=== PATIENT | female | born 1995 | race Caucasian/White ===

== ENCOUNTER 2016-08-17 13:37 | Emergency (ER) | payer BC ==
[~2016-08-17] VITALS: Ht 160 cm; Wt 140.7 kg
[~2016-08-17 13:37] MED LIST: BCPILLS PO
[2016-08-17 13:42] VITALS: TEMP 36.4; Ht 160 cm; Wt 140.7 kg
[2016-08-17] MEDS ORDERED: LEVO25TA PO (13:57)
--- NOTE | 2016-08-17 14:18 | DIAGNOSTIC IMAGING REPORT ---
LEFT ANKLE MIN 3 VIEWS ROUTINE CLINICAL HISTORY: Left ankle pain COMPARISON: None. DISCUSSION: No acute fractures are visualized. The ankle mortise appears intact on these nonstress views. There is minimal irregularity the tibial plafond. There is no evidence for soft tissue swelling. IMPRESSION: 1. No acute fractures or subluxations. 2. Minimal irregularity of the tibial plafond, finding of uncertain clinical significance Electronically signed by: Abdi Maldonado M.D. 08/17/2016 2:16 PM Dictated Date/Time: 08/17/2016 2:14 PM
--- NOTE | 2016-08-17 14:30 | EMERGENCY ROOM VISIT NOTE ---
ED Visit Note First contact with patient: 13:47 CHIEF COMPLAINT: Left ankle injury last evening HISTORY OF PRESENT ILLNESS: Patient is a 21-year-old white female brought to the emergency department by her grandmother for evaluation of a left ankle injury. She admits to drinking alcohol last night, and states that she fell, she believes rolling the left ankle. She has applied ice today. She notes that the foot and ankle are more swollen. She is able to bear weight but it is painful. She has a remote history of a fracture through this ankle when she was in elementary school. She rates her pain a 7/10. She denies any other injuries related to the fall. REVIEW OF SYSTEMS: Review of systems as per HPI. All other systems reviewed were negative. At least 6 systems reviewed. PMH: Electronic medical records are reviewed and summarized as above/below. See Problem List.. SOCIAL HISTORY: Patient lives at home. Employed. PHYSICAL EXAM: Vital Signs: Reviewed Nurse's notes. MENTAL STATUS: Alert, oriented, and cooperative. The left ankle is swollen and tender over the lateral aspect but the skin is intact and there is no ligamentous instability. XXXX pain over the 5th metatarsal or fibular head. Lisfranc joint is negative. There is no deformity. The foot and toes are warm and well-perfused. Sensation to pain and light touch is intact. EMERGENCY DEPARTMENT COURSE: X-ray reveals no acute fracture. Minimal irregularity was noted over the tibial plafond, possibly related to her old fracture or osteochondral defect. A compression sleeve and gel splint were applied to the ankle under my direction and the position was satisfactory. Crutches were issued and patient was instructed on a non weight bearing gait. Differential diagnosis include foot verses ankle sprain/fracture, contusion, dislocation. LEFT ANKLE MIN 3 VIEWS ROUTINE CLINICAL HISTORY: Left ankle pain COMPARISON: None. DISCUSSION: No acute fractures are visualized. The ankle mortise appears intact on these nonstress views. There is minimal irregularity the tibial plafond. There is no evidence for soft tissue swelling. IMPRESSION: 1. No acute fractures or subluxations. 2. Minimal irregularity of the tibial plafond, finding of uncertain clinical significance Problem List Medical Problems: (1) Migraine Status: Chronic (2) Pseudotumor cerebri Status: Chronic (3) Tobacco abuse Status: Chronic (4) TOBACCO USE DISORDER Status: Chronic Surgical Problems: (1) History of tonsillectomy Status: Resolved Current/Historical Medications Scheduled Control Pills ( Control Pills), 1 TAB PO DAILY Levothyroxine Sodium (Synthroid), 25 MCG PO DAILY Allergies Coded Allergies: Sumatriptan (Unverified Allergy, Intermediate, CHEST TIGHTNESS, 06/02/15) Ondansetron (Verified Allergy, Unknown, ., 06/02/15) Vital Signs Date Time Temp Pulse Resp B/P Pulse Ox O2 Delivery O2 Flow Rate FiO2 08/17/16 14:35 100 18 145/101 98 08/17/16 13:42 36.4 100 18 145/101 98 Room Air Departure Information Impression Primary Impression: Left ankle sprain Referrals No Doctor, Assigned (PCP) Patient Instructions [facility] Additional Instructions Ibuprofen(Motrin, Advil) may be used for fever or pain. Use 600mg every six hours as needed. Take with food. Avoid using more than 2400mg in a 24 hour period. Do not use 2400mg per day for more than three consecutive days without physician direction. Prolonged inappropriate use can lead to stomach upset or ulcers. This medication can be taken if you need to drive, work, or perform activities which may be dangerous when taking narcotic pain medication. (AND/OR) Acetaminophen(Tylenol) may be used for fever or pain. Use 1000mg every six hours as needed. Avoid using more than 3000mg in a 24 hour period. This medication can be taken if you need to drive, work, or perform activities which may be dangerous when taking narcotic pain medication. Ice compresses for 20 minutes at a time four times daily for 2-3 days. Use the gel splint and crutches as instructed. Rest and elevate your injury. Continue current medications. Return to the ER immediately for any numbness, tingling, severe pain, extreme swelling in the extremity or as needed. Followup with your family doctor or orthopedic surgery if no improvement in 5-7 days.
[2016-08-17 14:35] VITALS: BP 145/101; PULSE 100; O2SAT 98
== END 2016-08-17 14:35 | disposition home or self-care (01) ==
LOC: C.EDB 13:39 → C.EDD 14:35
DX: S93.402A Sprain of unspecified ligament of left ankle, initial encounter (principal); W19.XXXA Unspecified fall, initial encounter; F17.200 Nicotine dependence, unspecified, uncomplicated; Z90.89 Acquired absence of other organs

== ENCOUNTER 2020-01-11 15:39 | Inpatient (IN) ==
[2020-01-11] MEDS: LACTATED RINGER'S 1,000 ML IV PRN (16:35)
[2020-01-11 16:46] LABS: Basophils # (auto) 0.02 K/uL (0-0.2); Basophils % (auto) 0.2 %; Eosinophils # (auto) 0.15 K/uL (0-0.5); Eosinophils % (auto) 1.1 %; Hematocrit (blood only) 33.4 % (37-47); Hemoglobin 10.9 g/dL (12.0-16.0); Immature Granulocytes # (auto) 0.09 K/uL (0.00-0.02); Immature Granulocytes % (auto) 0.7 %; Lymphocytes # (auto) 2.22 K/uL (1.2-3.4); Lymphocytes % (auto) 16.9 %; Mean Corpuscular Hemoglobin 26.8 pg (25-34); Mean Corpuscular Hgb Conc 32.6 g/dL (32-36); Mean Corpuscular Volume 82.1 fL (80-100); Mean Platelet Volume 10.6 fL (7.4-10.4); Monocytes # (auto) 1.02 K/uL (0.11-0.59); Monocytes % (auto) 7.8 %; Neutrophils # (auto) 9.63 K/uL (1.4-6.5); Neutrophils % (auto) 73.3 %; Platelet Count 250 K/uL (130-400); RDW Coefficient of Variation 14.4 % (11.5-14.5); RDW Standard Deviation 43.4 fL (36.4-46.3); Red Blood Count 4.07 M/uL (4.2-5.4); White Blood Count 13.13 K/uL (4.8-10.8)
[2020-01-11] MEDS ORDERED: OXYTOCIN 30 UNITS/500 ML BAG IV PRN (19:38)
[2020-01-11] MEDS ORDERED: LACTATED RINGER'S 1,000 ML IV PRN (19:38)
[2020-01-11] MEDS ORDERED: DINOPROSTONE 10 MG INSERT PV ONE (20:00)
--- NOTE | 2020-01-11 21:45 | Obstetrical Progress Note ---
Date of Service January 11, 2020 Assessment & Plan Admission and Anticipated Discharge Date Admission Date: January 11, 2020 Subjective Pt doing well Induction for poor testing. Pt is obese. FHR ; CAT 1 Ctx. Minimal VE; FT/soft/post Cervidil placed Results & Data ([facility]) Vital Signs (Past 12 Hours) Vital Signs Temp Pulse Resp BP Pulse Ox 01/11/20 20:01 109 H 99 01/11/20 19:56 105 H 99 01/11/20 19:51 106 H 98 01/11/20 19:46 106 H 98 01/11/20 19:41 110 H 99 01/11/20 19:36 111 H 98 01/11/20 19:31 107 H 99 01/11/20 19:26 102 H 98 01/11/20 19:21 115 H 99 01/11/20 19:16 108 H 98 01/11/20 19:11 107 H 99 01/11/20 19:06 108 H 99 01/11/20 19:03 36.9 C 110 H 20 128/75 01/11/20 19:01 109 H 99 01/11/20 18:56 110 H 98 01/11/20 18:51 110 H 98 01/11/20 18:46 105 H 98 01/11/20 18:41 110 H 98 01/11/20 18:36 110 H 98 01/11/20 18:31 117 H 98 01/11/20 18:26 108 H 98 01/11/20 18:21 110 H 99 01/11/20 18:16 110 H 98 01/11/20 18:11 113 H 98 01/11/20 18:06 118 H 97 01/11/20 17:59 121 H 98 01/11/20 17:54 116 H 98 01/11/20 17:49 109 H 98 01/11/20 17:44 106 H 98 01/11/20 15:45 36.8 C 116 H 20 139/64
[2020-01-12] MEDS: ACETAMINOPHEN 325 MG TAB PO PRN (08:29)
--- NOTE | 2020-01-12 10:42 | Obstetrical Progress Note ---
Date of Service January 12, 2020 Assessment & Plan Admission and Anticipated Discharge Date Admission Date: January 11, 2020 Physical Exam Genitourinary: Manual OB Exam: + cervical dilation fingertip, + cervical effacement 50% and + station high OB Exam Monitor Tracing: + external FHT monitor used, + external uterine monitor used and + category I Cervidil removed will let eat and start Cytotec orally for cervical ripening Results & Data ([facility]) Vital Signs (Past 12 Hours) Vital Signs Temp Pulse Resp BP 01/12/20 07:12 90 131/60 01/12/20 07:08 36.6 C 01/12/20 05:54 84 140/88 01/12/20 03:51 36.7 C 01/11/20 22:50 36.4 C L 97 H 18 125/60
[2020-01-12] MEDS: miSOPROStoL 50 MCG TAB PO SCH ×2 (14:12→18:15)
[2020-01-12] MEDS ORDERED: DINOPROSTONE 10 MG INSERT PV ONE ×3 (21:15→22:30)
--- NOTE | 2020-01-12 22:20 | Obstetrical Progress Note ---
Date of Service January 12, 2020 Assessment & Plan Admission and Anticipated Discharge Date Admission Date: January 11, 2020 Physical Exam Genitourinary: Manual OB Exam: + cervical dilation fingertip, + cervical effacement 50% and + station high OB Exam Monitor Tracing: + external FHT monitor used, + external uterine monitor used and + category I Cervix more anterior and soft Cervidil 10 mg placed vaginally Results & Data ([facility]) Vital Signs (Past 12 Hours) Vital Signs Temp Pulse Resp BP 01/12/20 19:10 36.5 C 18 01/12/20 19:05 90 137/83 01/12/20 15:18 36.4 C L 98 H 20 134/72 01/12/20 11:09 36.6 C 84 20 141/90 H
[2020-01-13] MEDS: miSOPROStoL 50 MCG TAB PO SCH (09:51)
[2020-01-13] MEDS ORDERED: OXYTOCIN 30 UNITS/500 ML BAG IV PRN (10:44)
--- NOTE | 2020-01-13 10:47 | Obstetrical Progress Note ---
Date of Service January 13, 2020 Assessment & Plan Admission and Anticipated Discharge Date Admission Date: January 11, 2020 Subjective doing well Cevidil puled out of vagina Physical Exam Genitourinary: OB Exam Abdomen: + estimated weight (7-8 lbs.) Manual OB Exam: + cervical dilation 3 cm, + cervical effacement 60% and + station high OB Exam Monitor Tracing: + external FHT monitor used, + external uterine monitor used and + category I Will start Oxytocin and antibiotics Results & Data ([facility]) Vital Signs (Past 12 Hours) Vital Signs Temp Pulse Resp BP 01/13/20 07:25 36.4 C L 91 H 20 110/60 01/13/20 04:49 86 130/62
[2020-01-13] MEDS: LACTATED RINGER'S 1,000 ML IV PRN ×2 (11:51→17:57)
[2020-01-13] MEDS ORDERED: Nursing to Pharmacy Communication SCH (13:30)
[2020-01-13] MEDS ORDERED: PENICILLIN G POTASSIUM 6 MU in DEXTROSE 5% 250 ML IV STA (14:59)
[2020-01-13] MEDS ORDERED: BUTORPHANOL TARTRATE 1 MG/ML VIAL IV PRN (14:59)
--- NOTE | 2020-01-13 16:52 | Obstetrical Progress Note ---
Date of Service January 13, 2020 Assessment & Plan Admission and Anticipated Discharge Date Admission Date: January 11, 2020 Physical Exam Genitourinary: Manual OB Exam: + cervical dilation 4 cm, + cervical effacement 80% and + station high OB Exam Monitor Tracing: + external FHT monitor used, + external uterine monitor used, + category I and + normal FHT variability Results & Data ([facility]) Vital Signs (Past 12 Hours) Vital Signs Temp Pulse Resp BP 01/13/20 16:29 86 141/91 H 01/13/20 14:50 36.5 C 102 H 16 130/79 01/13/20 14:03 104 H 18 136/91 01/13/20 13:12 99 H 18 144/88 H 01/13/20 11:54 96 H 18 121/59 L 01/13/20 10:49 36.4 C L 100 H 20 127/60 01/13/20 07:25 36.4 C L 91 H 20 110/60
[2020-01-13] MEDS ORDERED: fentaNYL citrate 100 MCG/2 ML VIAL ONE (17:06)
[2020-01-13] MEDS ORDERED: ePHEDrine sulfate 50 MG/ML AMP ONE (17:06)
[2020-01-13] MEDS ORDERED: BUPIVACAINE 0.25% 30 ML VIAL ONE (17:06)
[2020-01-13] MEDS ORDERED: fentaNYL 2MCG/ML ROPIV 1.25MG/ML 100 ML BAG EPI ONE (17:07)
[2020-01-13] MEDS ORDERED: DiphenhydrAMINE HCL 50 MG/ML VIAL IV PRN (17:15)
[2020-01-13] MEDS ORDERED: NALOXONE HCL 0.4 MG/1 ML VIAL/CARP IV PRN (17:15)
[2020-01-13] MEDS ORDERED: NALOXONE HCL 1 MG in SODIUM CHLORIDE 0.9% 1000ML 1,000 ML IV PRN (17:15)
[2020-01-13] MEDS ORDERED: ePHEDrine sulfate 50 MG/ML AMP IV PRN (17:15)
--- NOTE | 2020-01-13 17:16 | Anesthesiology Consultation ---
Date of Service January 13, 2020 Assessment & Plan (1) Encounter for pre-operative examination: Chart Review Chart Review: Patient NOT seen in Pre Admission Testing and Acceptable Risk for Labor Epidural Consults Requested none History Height/Weight Height: 5 ft 3 in Weight: 163.293 kg Allergies Allergy/AdvReac Type Severity Reaction Status Date / Time sumatriptan Allergy Intermediate CHEST Verified 01/11/20 15:48 TIGHTNESS ondansetron Allergy Unknown Unknown Verified 01/11/20 15:48 Medications Home Medications Medication Instructions Recorded Confirmed Last Taken levothyroxine [Synthroid] 25 mcg PO DAILY #0 tab 08/17/16 01/11/20 01/11/20 07:00 docusate sodium [Colace] 100 mg PO HS 12/16/19 01/11/20 01/10/20 23:00 ferrous sulfate [iron] 325 mg PO [id number] 12/16/19 01/11/20 01/09/20 23:00 [id number] 1 tab PO DAILY 12/16/19 01/11/20 01/10/20 23:00 [] Active Medications Generic Name Dose Route Start Last Admin Trade Name Freq PRN Reason Stop Dose Admin Acetaminophen 650 mg 01/12/20 07:51 01/12/20 08:29 Acetaminophen 325 Mg Tab PO 02/11/20 07:50 650 mg Q4H PRN Administration head ache Butorphanol Tartrate 1 mg 01/13/20 14:59 01/13/20 15:12 Butorphanol Tartrate 1 Mg/Ml Vial IV 02/12/20 14:58 1 mg Q2H PRN Administration Pain Lactated Ringer's 1,000 mls @ 125 mls/hr 01/11/20 16:23 01/13/20 17:15 Lr IV 02/10/20 16:22 999 mls/hr .Q8H PRN Infusion L&D Protocol Protocol Oxytocin 30 units in 500 mls @ 6 mls/hr 01/13/20 10:44 01/13/20 15:57 Pitocin IV 01/15/20 10:43 0.36 units/hr .Q24H PRN 6 mls/hr Labor Induction/Augmentation Titration Protocol 0.36 UNITS/HR Past Medical History Medical History ADHD Enlarged kidney right kidney- following up with nep hrologist on 01-03 Hypothyroidism Migraine Morbid obesity Pseudotumor cerebri Ureteral calculus, left Past Surgical History Surgical History History of tonsillectomy Past Anesthesia History No Hx of Anesthesia Complications and No Family Hx of Anesthesia Complications History of PONV No Hx of PONV and No Hx of Motion Sickness Social History Smoking Status: Never smoker Hx Alcohol Use: No Hx Substance Use: No substance use type: does not use Physical Exam Vital Signs Last Vital Signs Temp 36.5 C 01/13/20 14:50 Pulse 90 01/13/20 17:15 Resp 16 01/13/20 14:50 BP 141/91 H 01/13/20 16:29 Pulse Ox 99 01/13/20 17:15 Testing Laboratory Results 01/11/20 16:34
--- NOTE | 2020-01-13 19:57 | Obstetrical Progress Note ---
Date of Service January 13, 2020 Assessment & Plan Admission and Anticipated Discharge Date Admission Date: January 11, 2020 Physical Exam Genitourinary: OB Exam Abdomen: + vertex Manual OB Exam: + cervical dilation 4 cm, + cervical effacement 80% and + station -2 OB Exam Monitor Tracing: + external FHT monitor used, + external uterine monitor used and + category I epidural working well first antibiotic dose in Results & Data ([facility]) Vital Signs (Past 12 Hours) Vital Signs Temp Pulse Resp BP Pulse Ox 01/13/20 19:51 95 H 142/67 H 01/13/20 19:50 96 H 98 01/13/20 19:45 99 H 98 01/13/20 19:40 98 H 97 01/13/20 19:36 93 H 151/73 H 01/13/20 19:35 91 H 98 01/13/20 19:30 98 H 20 99 01/13/20 19:25 94 H 98 01/13/20 19:21 94 H 124/63 01/13/20 19:20 95 H 98 01/13/20 19:15 95 H 98 01/13/20 19:10 99 H 97 01/13/20 19:05 92 H 98 01/13/20 19:04 97 H 140/67 01/13/20 19:00 91 H 98 01/13/20 18:59 93 H 143/68 H 01/13/20 18:55 92 H 98 01/13/20 18:54 94 H 154/73 H 01/13/20 18:50 97 H 97 01/13/20 18:49 97 H 142/71 H 01/13/20 18:45 97 H 143/74 H 96 01/13/20 18:40 99 H 96 01/13/20 18:39 98 H 145/69 H 01/13/20 18:35 96 H 97 01/13/20 18:34 92 H 155/77 H 01/13/20 18:30 99 H 145/87 H 97 01/13/20 18:25 91 H 97 01/13/20 18:24 94 H 127/57 L 01/13/20 18:20 92 H 98 01/13/20 18:18 90 123/59 L 01/13/20 18:16 90 126/61 01/13/20 18:15 92 H 98 01/13/20 18:14 93 H 127/60 01/13/20 18:12 93 H 18 126/60 01/13/20 18:10 93 H 18 122/58 L 98 01/13/20 18:08 102 H 131/61 01/13/20 18:06 93 H 143/69 H 01/13/20 18:05 91 H 98 01/13/20 18:04 96 H 18 143/66 H 01/13/20 18:02 95 H 16 145/67 H 01/13/20 18:00 94 H 16 143/68 H 98 01/13/20 17:58 96 H 16 137/67 01/13/20 17:56 93 H 16 145/76 H 01/13/20 17:55 92 H 98 01/13/20 17:54 93 H 16 143/65 H 01/13/20 17:52 93 H 16 144/65 H 01/13/20 17:50 93 H 16 144/72 H 99 01/13/20 17:48 101 H 16 148/63 H 01/13/20 17:46 98 H 16 158/74 H 01/13/20 17:45 98 H 99 01/13/20 17:44 100 H 180/91 H 01/13/20 17:40 101 H 99 01/13/20 17:35 99 H 99 01/13/20 17:31 92 H 178/101 H 01/13/20 17:30 88 100 01/13/20 17:25 89 99 01/13/20 17:20 86 99 01/13/20 17:15 90 99 01/13/20 17:10 90 98 01/13/20 17:05 83 99 01/13/20 16:29 86 141/91 H 01/13/20 14:50 36.5 C 102 H 16 130/79 01/13/20 14:03 104 H 18 136/91 01/13/20 13:12 99 H 18 144/88 H 01/13/20 11:54 96 H 18 121/59 L 01/13/20 10:49 36.4 C L 100 H 20 127/60
[2020-01-13] MEDS: PENICILLIN G POTASSIUM 3 MU in DEXTROSE 5% 100 ML IV PRN (20:33)
[2020-01-14] MEDS: PENICILLIN G POTASSIUM 3 MU in DEXTROSE 5% 100 ML IV PRN ×4 (00:41→12:27)
[2020-01-14] MEDS: LACTATED RINGER'S 1,000 ML IV PRN (02:01)
[2020-01-14] MEDS: ACETAMINOPHEN 325 MG TAB PO PRN (02:46)
[2020-01-14] MEDS: fentaNYL 2MCG/ML ROPIV 1.25MG/ML 100 ML BAG EPI PRN ×2 (03:32→10:34)
--- NOTE | 2020-01-14 05:23 | Obstetrical Progress Note ---
Date of Service January 14, 2020 Assessment & Plan Admission and Anticipated Discharge Date Admission Date: January 11, 2020 Physical Exam Genitourinary: Manual OB Exam: + cervical dilation 4 cm and 5 cm, + cervical effacement 80%, + station -2 and + amniotic fluid (AROM with amni-hook) meconium OB Exam Monitor Tracing: + external FHT monitor used Results & Data ([facility]) Vital Signs (Past 12 Hours) Vital Signs Temp Pulse Resp BP Pulse Ox 01/14/20 05:20 93 H 99 01/14/20 05:15 79 98 01/14/20 05:10 74 97 01/14/20 05:05 90 142/87 H 98 01/14/20 05:00 74 97 01/14/20 04:55 71 99 01/14/20 04:50 84 144/69 H 99 01/14/20 04:45 81 96 01/14/20 04:42 87 92 01/14/20 04:40 80 94 01/14/20 04:35 85 148/70 H 98 01/14/20 04:30 83 20 93 01/14/20 04:25 81 96 01/14/20 04:20 78 146/68 H 98 01/14/20 04:18 87 94 01/14/20 04:15 82 96 01/14/20 04:12 83 94 01/14/20 04:10 82 96 01/14/20 04:05 85 139/61 99 01/14/20 04:00 36.9 C 87 20 95 01/14/20 03:55 86 95 01/14/20 03:50 82 147/69 H 97 01/14/20 03:45 87 96 01/14/20 03:40 82 97 01/14/20 03:36 92 H 137/72 01/14/20 03:35 96 H 99 01/14/20 03:30 89 96 01/14/20 03:25 85 96 01/14/20 03:20 91 H 143/70 H 98 01/14/20 03:15 89 98 01/14/20 03:10 88 98 01/14/20 03:05 96 H 153/82 H 98 01/14/20 03:00 92 H 18 97 01/14/20 02:55 92 H 98 01/14/20 02:50 87 165/100 H 98 01/14/20 02:45 93 H 98 20 02:40 87 98 20 02:35 91 H 157/91 H 97 20 02:30 92 H 98 01/14/20 02:25 100 H 97 20 02:20 89 167/91 H 98 01/14/20 02:15 94 H 97 01/14/20 02:10 89 98 01/14/20 02:06 87 160/86 H 01/14/20 02:05 84 98 01/14/20 02:00 85 96 01/14/20 01:55 85 97 01/14/20 01:50 89 158/89 H 97 01/14/20 01:45 86 96 01/14/20 01:40 84 96 01/14/20 01:35 93 H 164/93 H 97 01/14/20 01:30 84 98 01/14/20 01:29 87 20 94 01/14/20 01:25 83 96 01/14/20 01:20 91 H 163/94 H 96 01/14/20 01:15 96 H 92 01/14/20 01:10 92 H 96 01/14/20 01:09 99 H 92 01/14/20 01:05 88 153/84 H 96 01/14/20 01:02 94 H 93 01/14/20 01:00 94 H 20 96 01/14/20 00:55 96 H 96 01/14/20 00:50 36.6 C 90 161/86 H 97 01/14/20 00:45 97 H 98 01/14/20 00:40 81 96 01/14/20 00:37 88 138/66 20 00:35 94 H 97 20 00:30 88 20 97 1820 00:25 85 97 1820 00:20 88 135/63 97 1820 00:15 91 H 95 01/14/20 00:10 91 H 94 1820 00:06 86 127/63 94 1820 00:05 89 95 1820 00:00 89 20 95 20 23:55 90 96 20 23:51 90 127/65 20 23:50 89 96 09/17/20 23:45 93 H 95 01/13/20 23:40 91 H 97 01/13/20 23:36 87 127/60 01/13/20 23:35 89 98 01/13/20 23:30 86 20 98 01/13/20 23:25 112 H 98 01/13/20 23:20 101 H 102/53 L 97 01/13/20 23:15 100 H 97 01/13/20 23:10 95 H 97 01/13/20 23:06 95 H 102/53 L 01/13/20 23:05 93 H 97 01/13/20 23:00 94 H 20 97 01/13/20 22:55 98 H 98 01/13/20 22:52 94 H 132/60 01/13/20 22:50 90 98 01/13/20 22:45 98 H 98 01/13/20 22:40 91 H 98 01/13/20 22:35 93 H 148/76 H 97 01/13/20 22:30 93 H 18 96 01/13/20 22:25 94 H 95 01/13/20 22:22 99 H 137/72 01/13/20 22:20 95 H 96 01/13/20 22:15 93 H 96 01/13/20 22:10 93 H 96 01/13/20 22:06 93 H 101/51 L 01/13/20 22:05 93 H 97 01/13/20 22:00 111 H 20 99 01/13/20 21:55 99 H 96 01/13/20 21:50 96 H 128/65 96 01/13/20 21:45 99 H 97 01/13/20 21:40 92 H 97 01/13/20 21:35 96 H 134/71 97 01/13/20 21:30 122 H 99 01/13/20 21:29 101 H 93 01/13/20 21:25 103 H 95 01/13/20 21:20 97 H 96 01/13/20 21:17 96 H 94 01/13/20 21:15 98 H 95 01/13/20 21:10 101 H 96 01/13/20 21:05 95 H 97 01/13/20 21:00 36.9 C 100 H 20 98 01/13/20 20:55 99 H 98 01/13/20 20:50 99 H 97 09/17/20 20:45 96 H 98 1720 20:40 121 H 100 20 20:36 105 H 129/58 L 20 20:35 99 H 98 20 20:30 94 H 20 96 1720 20:25 95 H 96 20 20:21 96 H 162/73 H 20 20:20 94 H 97 20 20:15 95 H 97 20 20:10 96 H 97 20 20:06 95 H 139/65 01/13/20 20:05 94 H 98 20 20:00 90 20 98 20 19:55 90 99 01/13/20 19:51 95 H 142/67 H 01/13/20 19:50 96 H 98 01/13/20 19:45 99 H 98 01/13/20 19:40 98 H 97 01/13/20 19:36 93 H 151/73 H 01/13/20 19:35 91 H 98 01/13/20 19:30 98 H 20 99 20 19:25 94 H 98 20 19:21 94 H 124/63 01/13/20 19:20 95 H 98 20 19:15 95 H 98 01/13/20 19:10 99 H 97 20 19:05 92 H 98 01/13/20 19:04 97 H 140/67 01/13/20 19:00 91 H 98 01/13/20 18:59 93 H 143/68 H 01/13/20 18:55 92 H 98 20 18:54 94 H 154/73 H 20 18:50 97 H 97 20 18:49 97 H 142/71 H 20 18:45 97 H 143/74 H 96 20 18:40 99 H 96 20 18:39 98 H 145/69 H 1720 18:35 96 H 97 20 18:34 92 H 155/77 H 20 18:30 99 H 145/87 H 97 20 18:25 91 H 97 01/13/20 18:24 94 H 127/57 L 01/13/20 18:20 92 H 98 01/13/20 18:18 90 123/59 L 01/13/20 18:16 90 126/61 01/13/20 18:15 92 H 98 01/13/20 18:14 93 H 127/60 01/13/20 18:12 93 H 18 126/60 01/13/20 18:10 93 H 18 122/58 L 98 01/13/20 18:08 102 H 131/61 01/13/20 18:06 93 H 143/69 H 01/13/20 18:05 91 H 98 01/13/20 18:04 96 H 18 143/66 H 01/13/20 18:02 95 H 16 145/67 H 01/13/20 18:00 94 H 16 143/68 H 98 01/13/20 17:58 96 H 16 137/67 01/13/20 17:56 93 H 16 145/76 H 01/13/20 17:55 92 H 98 01/13/20 17:54 93 H 16 143/65 H 01/13/20 17:52 93 H 16 144/65 H 01/13/20 17:50 93 H 16 144/72 H 99 01/13/20 17:48 101 H 16 148/63 H 01/13/20 17:46 98 H 16 158/74 H 01/13/20 17:45 98 H 99 01/13/20 17:44 100 H 180/91 H 01/13/20 17:40 101 H 99 01/13/20 17:35 99 H 99 01/13/20 17:31 92 H 178/101 H 01/13/20 17:30 88 100 01/13/20 17:25 89 99
[2020-01-14] MEDS: LEVOTHYROXINE SODIUM 25 MCG TABLET PO SCH (07:33)
[2020-01-14] MEDS ORDERED: LACTATED RINGER'S 500 ML IV ONE (07:51)
--- NOTE | 2020-01-14 07:51 | Obstetrical Progress Note ---
Date of Service January 14, 2020 Assessment & Plan Admission and Anticipated Discharge Date Admission Date: January 11, 2020 Subjective Patient is seen and examined. She is known to me from before. Reviewed her past medical surgical social history. loss complicated by morbid obesity, chlamydia infection at new OB visit, test of cure negative x2, hypothyroidism, on levothyroxine, GBS positive, history of migraines, history of pseudotumor cerebri, history of ADHD. Patient was admitted on January 10 for induction of labor due to low BPP at office. She has received multiple doses of cervical ripening agents and was placed on Pitocin yesterday and received epidural. Membranes were ruptured this morning with light meconium fluid. Patient feels well other than being exhausted and likes to sleep after vaginal exam. Vital signs stable afebrile, heart rate reassuring I was asked by nursing team to place internal monitors. Vaginal exam, cervix is 4 cm dilated, 80% effaced, head at -2 station, FSE is applied heart rate is in 130s to 140s, IUPC is placed. Patient has Moctezuma catheter which has small amount of dark concentrated urine. Plan to give her IV fluids bolus and increase Pitocin and monitor contractions with internal monitoring and reevaluate for cervical change. Continue to monitor closely. Results & Data ([facility]) Vital Signs (Past 12 Hours) Vital Signs Temp Pulse Resp BP Pulse Ox 01/14/20 07:40 91 H 100 01/14/20 07:35 93 H 132/84 100 01/14/20 07:30 85 98 01/14/20 07:25 81 99 01/14/20 07:20 81 149/85 H 97 01/14/20 07:15 83 99 01/14/20 07:10 84 98 01/14/20 07:05 77 142/85 H 98 01/14/20 07:00 36.8 C 85 20 99 01/14/20 06:55 80 99 01/14/20 06:50 80 127/70 98 01/14/20 06:45 89 99 01/14/20 06:40 84 97 01/14/20 06:35 83 154/90 H 99 01/14/20 06:30 99 H 20 98 01/14/20 06:25 88 97 01/14/20 06:20 97 H 120/92 97 01/14/20 06:15 94 H 97 09/18/20 06:10 96 H 96 20 06:06 104 H 124/91 20 06:05 102 H 99 20 06:00 100 H 20 100 20 05:55 97 H 98 20 05:52 92 H 139/88 20 05:50 94 H 98 1820 05:45 88 98 20 05:40 91 H 98 20 05:35 87 147/79 H 98 20 05:30 36.6 C 87 20 99 20 05:25 88 99 18/20 05:20 93 H 99 20 05:15 79 98 20 05:10 74 97 20 05:05 90 142/87 H 98 20 05:00 74 97 20 04:55 71 99 20 04:50 84 144/69 H 99 20 04:45 81 96 1820 04:42 87 92 18/20 04:40 80 94 18/20 04:35 85 148/70 H 98 18/20 04:30 83 20 93 18/20 04:25 81 96 1820 04:20 78 146/68 H 98 20 04:18 87 94 20 04:15 82 96 18/20 04:12 83 94 20 04:10 82 96 20 04:05 85 139/61 99 20 04:00 36.9 C 87 20 95 18/20 03:55 86 95 18/20 03:50 82 147/69 H 97 18/20 03:45 87 96 18/20 03:40 82 97 0918/20 03:36 92 H 137/72 1820 03:35 96 H 99 18/20 03:30 89 96 18/20 03:25 85 96 18/20 03:20 91 H 143/70 H 98 18/20 03:15 89 98 1820 03:10 88 98 20 03:05 96 H 153/82 H 98 1820 03:00 92 H 18 97 1820 02:55 92 H 98 1820 02:50 87 165/100 H 98 20 02:45 93 H 98 20 02:40 87 98 20 02:35 91 H 157/91 H 97 1820 02:30 92 H 98 20 02:25 100 H 97 20 02:20 89 167/91 H 98 20 02:15 94 H 97 20 02:10 89 98 20 02:06 87 160/86 H 20 02:05 84 98 01/14/20 02:00 85 96 01/14/20 01:55 85 97 01/14/20 01:50 89 158/89 H 97 01/14/20 01:45 86 96 20 01:40 84 96 01/14/20 01:35 93 H 164/93 H 97 01/14/20 01:30 84 98 20 01:29 87 20 94 1820 01:25 83 96 1820 01:20 91 H 163/94 H 96 20 01:15 96 H 92 01/14/20 01:10 92 H 96 01/14/20 01:09 99 H 92 01/14/20 01:05 88 153/84 H 96 20 01:02 94 H 93 01/14/20 01:00 94 H 20 96 01/14/20 00:55 96 H 96 01/14/20 00:50 36.6 C 90 161/86 H 97 1820 00:45 97 H 98 1820 00:40 81 96 1820 00:37 88 138/66 1820 00:35 94 H 97 20 00:30 88 20 97 1820 00:25 85 97 1820 00:20 88 135/63 97 1820 00:15 91 H 95 18/20 00:10 91 H 94 20 00:06 86 127/63 94 20 00:05 89 95 09/18/20 00:00 89 20 95 01/13/20 23:55 90 96 01/13/20 23:51 90 127/65 01/13/20 23:50 89 96 01/13/20 23:45 93 H 95 01/13/20 23:40 91 H 97 01/13/20 23:36 87 127/60 01/13/20 23:35 89 98 01/13/20 23:30 86 20 98 01/13/20 23:25 112 H 98 01/13/20 23:20 101 H 102/53 L 97 01/13/20 23:15 100 H 97 01/13/20 23:10 95 H 97 01/13/20 23:06 95 H 102/53 L 01/13/20 23:05 93 H 97 01/13/20 23:00 94 H 20 97 01/13/20 22:55 98 H 98 01/13/20 22:52 94 H 132/60 01/13/20 22:50 90 98 01/13/20 22:45 98 H 98 01/13/20 22:40 91 H 98 01/13/20 22:35 93 H 148/76 H 97 01/13/20 22:30 93 H 18 96 01/13/20 22:25 94 H 95 01/13/20 22:22 99 H 137/72 01/13/20 22:20 95 H 96 01/13/20 22:15 93 H 96 01/13/20 22:10 93 H 96 01/13/20 22:06 93 H 101/51 L 01/13/20 22:05 93 H 97 01/13/20 22:00 111 H 20 99 01/13/20 21:55 99 H 96 01/13/20 21:50 96 H 128/65 96 01/13/20 21:45 99 H 97 01/13/20 21:40 92 H 97 01/13/20 21:35 96 H 134/71 97 01/13/20 21:30 122 H 99 01/13/20 21:29 101 H 93 01/13/20 21:25 103 H 95 01/13/20 21:20 97 H 96 01/13/20 21:17 96 H 94 01/13/20 21:15 98 H 95 01/13/20 21:10 101 H 96 01/13/20 21:05 95 H 97 01/13/20 21:00 36.9 C 100 H 20 98 01/13/20 20:55 99 H 98 01/13/20 20:50 99 H 97 01/13/20 20:45 96 H 98 01/13/20 20:40 121 H 100 01/13/20 20:36 105 H 129/58 L 01/13/20 20:35 99 H 98 01/13/20 20:30 94 H 20 96 01/13/20 20:25 95 H 96 01/13/20 20:21 96 H 162/73 H 01/13/20 20:20 94 H 97 01/13/20 20:15 95 H 97 01/13/20 20:10 96 H 97 01/13/20 20:06 95 H 139/65 01/13/20 20:05 94 H 98 01/13/20 20:00 90 20 98 01/13/20 19:55 90 99 01/13/20 19:51 95 H 142/67 H 01/13/20 19:50 96 H 98
[2020-01-14] MEDS: LACTATED RINGER'S 1,000 ML IV SCH ×3 (08:05→14:08)
[2020-01-14 09:36] LABS: Basophils # (auto) 0.02 K/uL (0-0.2); Basophils % (auto) 0.1 %; Eosinophils # (auto) 0.12 K/uL (0-0.5); Eosinophils % (auto) 0.9 %; Hematocrit (blood only) 32.7 % (37-47); Hemoglobin 10.7 g/dL (12.0-16.0); Immature Granulocytes # (auto) 0.09 K/uL (0.00-0.02); Immature Granulocytes % (auto) 0.7 %; Lymphocytes # (auto) 1.33 K/uL (1.2-3.4); Lymphocytes % (auto) 9.7 %; Mean Corpuscular Hgb Conc 32.7 g/dL (32-36); Mean Corpuscular Volume 82.4 fL (80-100); Mean Platelet Volume 10.5 fL (7.4-10.4); Monocytes # (auto) 0.91 K/uL (0.11-0.59); Monocytes % (auto) 6.7 %; Neutrophils # (auto) 11.19 K/uL (1.4-6.5); Neutrophils % (auto) 81.9 %; Platelet Count 220 K/uL (130-400); RDW Coefficient of Variation 14.4 % (11.5-14.5); RDW Standard Deviation 43.5 fL (36.4-46.3); Red Blood Count 3.97 M/uL (4.2-5.4); White Blood Count 13.66 K/uL (4.8-10.8)
[2020-01-14 10:03] LABS: Albumin Level 2.1 gm/dl (3.4-5.0); BUN Creatinine Ratio 17.1 (10-20); Calcium 9.7 mg/dl (8.5-10.1); Creatinine Clr Calc Pharmacy 193.2 ml/min; Est GFR (African American) 140.9; Est GFR (Non-African American) 121.6; Potassium 4.2 mmol/L (3.5-5.1)
[2020-01-14 10:05] LABS: Albumin Globulin Ratio 0.5 (0.9-2); Bilirubin,Total 1.1 mg/dl (0.2-1); Globulin 4.4 gm/dl (2.5-4.0); Total Protein 6.5 gm/dl (6.4-8.2)
[2020-01-14] MEDS ORDERED: AZITHROMYCIN 500 MG in DEXTROSE 5% 250 ML IV STA (13:09)
[2020-01-14] MEDS ORDERED: LACTATED RINGER'S 1,000 ML IV SCH (13:15)
--- NOTE | 2020-01-14 13:20 | History & Physical Report ---
Date of Service January 14, 2020 Assessment & Plan (1) Morbid obesity: (2) Failed induction of labor, antepartum: 24 yo at 39.2 wks with morbid obesity, IOL since 01/10, no cervical change despite multiple induction agents, pitocin, AROM Plan for Primary C Section Accepts the risks See HPI Admission and Anticipated Discharge Date Admission Date: January 11, 2020 History of Present Illness Primary Care Provider: Yonis Ta MD Patient is reevaluated She denies any pain/ pressure/ fever/ chills/ N&V She states she is done She has been on max dose of pitocin with IUPC IOL since 01/10 AROM'ed at 5 am this morning VE; 4-5 cm/ 80%/ -2, coned head, no change since this morning FHR had been categ I with some episodes of early/ late decels with spontaneous recovery Discussed VE and she is asking for section Understands it is a major surgery risks including but not limited to bleeding, infection, injury to surrounding organs, like bowels, bladder, ureters, longer recovery, problems with wound healing, DVT, PE Her has been complicated by 1 morbid obesity BMI greater than 50 2 hypothyroidism 3 migraines 4 ADHD 5 Diabetes 6 Chlamydia positive at new OB visit, test of cure was negative. Allergies Allergy/AdvReac Type Severity Reaction Status Date / Time sumatriptan Allergy Intermediate CHEST Verified 01/11/20 15:48 TIGHTNESS ondansetron Allergy Unknown Unknown Verified 01/11/20 15:48 Home Medications Home Medications Medication Instructions Recorded Confirmed Type levothyroxine [Synthroid] 25 mcg PO DAILY #0 tab 08/17/16 01/11/20 History docusate sodium [Colace] 100 mg PO HS 12/16/19 01/11/20 History ferrous sulfate [iron] 325 mg PO 3XWK 12/16/19 01/11/20 History [id number] 1 tab PO DAILY 12/16/19 01/11/20 History [] Patient History Medical History ADHD Enlarged kidney right kidney- following up with nep hrologist on - Hypothyroidism Migraine Morbid obesity Pseudotumor cerebri Ureteral calculus, left Surgical History History of tonsillectomy Social History Smoking Status: Never smoker Second Hand Exposure: Yes; Hx Alcohol Use: No Hx Substance Use: No Preferred Language: Uzbek Communication Ability: Effective Visual Impairment: No Limitations Hearing Ability: Normal Tsa Screener Required: No Beliefs That Will Affect Care: None marital status: Single Current Living Situation: Significant Other Current Living Situation Comment: lives with mom current occupational status: employed current occupation: [employer] Other Information That Helps Us Care for You: No Feels Safe at Home: Yes Safety Concerns: Feels Safe At This Time Review of Systems All systems reviewed & are unremarkable except as noted in HPI & below Physical Exam Constitutional: WD/WN, vitals as above well developed, well nourished and + morbidly obese Gastrointestinal (Abdomen): normal bowel sounds, soft, nontender, no hepatosplenomegaly (morbidly obese) Results & Data ([facility]) Vital Signs (Past 12 Hours) Vital Signs Temp Pulse Resp BP Pulse Ox 01/14/20 13:06 102 H 152/86 H 01/14/20 13:05 102 H 100 01/14/20 13:00 37.2 C 105 H 20 100 01/14/20 12:55 94 H 100 01/14/20 12:52 91 H 149/70 H 01/14/20 12:50 92 H 98 01/14/20 12:45 94 H 100 01/14/20 12:40 93 H 100 01/14/20 12:37 90 133/66 01/14/20 12:35 91 H 100 01/14/20 12:30 92 H 20 100 01/14/20 12:25 91 H 100 01/14/20 12:20 101 H 100 01/14/20 12:15 90 98 01/14/20 12:10 95 H 98 01/14/20 12:05 96 H 157/76 H 99 01/14/20 12:01 24 01/14/20 12:00 101 H 98 01/14/20 11:55 98 H 97 01/14/20 11:51 103 H 162/92 H 01/14/20 11:50 100 H 98 01/14/20 11:45 105 H 97 09/18/20 11:40 96 H 97 09/1820 11:36 95 H 94 1820 11:35 99 H 137/68 97 1820 11:30 96 H 20 97 20 11:25 96 H 96 20 11:21 96 H 144/71 H 20 11:20 94 H 96 20 11:15 91 H 98 20 11:10 93 H 98 01/14/20 11:06 91 H 144/78 H 01/14/20 11:05 90 97 20 11:00 37.1 C 96 H 20 98 20 10:55 92 H 96 01/14/20 10:50 96 H 132/68 98 01/14/20 10:45 97 H 97 01/14/20 10:40 92 H 98 01/14/20 10:39 101 H 142/76 H 01/14/20 10:35 94 H 99 01/14/20 10:30 91 H 20 96 01/14/20 10:25 94 H 98 20 10:21 95 H 143/83 H 01/14/20 10:20 95 H 98 20 10:15 97 H 98 01/14/20 10:10 98 H 98 01/14/20 10:05 106 H 149/71 H 98 01/14/20 10:00 95 H 22 99 01/14/20 09:55 88 100 1820 09:52 85 146/78 H 01/14/20 09:50 84 97 20 09:45 86 96 01/14/20 09:40 88 97 20 09:36 86 143/91 H 20 09:35 87 98 20 09:30 36.6 C 89 20 98 20 09:25 83 100 1820 09:21 86 150/78 H 20 09:20 86 98 20 09:15 89 99 20 09:10 86 99 1820 09:05 84 135/72 97 20 09:00 36.6 C 88 20 99 20 08:55 85 99 20 08:50 84 137/63 99 09/18/20 08:45 84 99 /18/20 08:40 85 99 18/20 08:36 86 147/68 H 18/20 08:35 83 100 18/20 08:30 87 99 18/20 08:25 90 100 18/20 08:20 87 149/94 H 99 18/20 08:15 86 98 18/20 08:10 86 99 18/20 08:05 86 152/97 H 99 18/20 08:00 86 20 99 18/20 07:55 82 97 18/20 07:50 86 144/92 H 98 18/20 07:45 87 98 18/20 07:40 91 H 100 01/13/20 07:35 93 H 132/84 100 18/20 07:30 85 98 18/20 07:25 81 99 18/20 07:20 81 149/85 H 97 18/20 07:15 83 99 01/13/20 07:10 84 98 18/20 07:05 77 142/85 H 98 18/20 07:00 36.8 C 85 20 99 18/20 06:55 80 99 18/20 06:50 80 127/70 98 18/20 06:45 89 99 18/20 06:40 84 97 18/20 06:35 83 154/90 H 99 18/20 06:30 99 H 20 98 18/20 06:25 88 97 18/20 06:20 97 H 120/92 97 18/20 06:15 94 H 97 18/20 06:10 96 H 96 18/20 06:06 104 H 124/91 18/20 06:05 102 H 99 18/20 06:00 100 H 20 100 18/20 05:55 97 H 98 18/20 05:52 92 H 139/88 18/20 05:50 94 H 98 18/20 05:45 88 98 18/20 05:40 91 H 98 18/20 05:35 87 147/79 H 98 18/20 05:30 36.6 C 87 20 99 09/18/20 05:25 88 99 09/18/20 05:20 93 H 99 18/20 05:15 79 98 18/20 05:10 74 97 18/20 05:05 90 142/87 H 98 18/20 05:00 74 97 18/20 04:55 71 99 18/20 04:50 84 144/69 H 99 18/20 04:45 81 96 18/20 04:42 87 92 18/20 04:40 80 94 18/20 04:35 85 148/70 H 98 /18/20 04:30 83 20 93 18/20 04:25 81 96 18/20 04:20 78 146/68 H 98 18/20 04:18 87 94 18/20 04:15 82 96 18/20 04:12 83 94 18/20 04:10 82 96 18/20 04:05 85 139/61 99 20 04:00 36.9 C 87 20 95 18/20 03:55 86 95 18/20 03:50 82 147/69 H 97 18/20 03:45 87 96 18/20 03:40 82 97 18/20 03:36 92 H 137/72 18/20 03:35 96 H 99 18/20 03:30 89 96 18/20 03:25 85 96 18/20 03:20 91 H 143/70 H 98 18/20 03:15 89 98 18/20 03:10 88 98 18/20 03:05 96 H 153/82 H 98 18/20 03:00 92 H 18 97 18/20 02:55 92 H 98 18/20 02:50 87 165/100 H 98 18/20 02:45 93 H 98 18/20 02:40 87 98 18/20 02:35 91 H 157/91 H 97 18/20 02:30 92 H 98 18/20 02:25 100 H 97 18/20 02:20 89 167/91 H 98 18/20 02:15 94 H 97 09/18/20 02:10 89 98 01/14/20 02:06 87 160/86 H 01/14/20 02:05 84 98 01/14/20 02:00 85 96 01/14/20 01:55 85 97 01/14/20 01:50 89 158/89 H 97 01/14/20 01:45 86 96 01/14/20 01:40 84 96 01/14/20 01:35 93 H 164/93 H 97 01/14/20 01:30 84 98 01/14/20 01:29 87 20 94 01/14/20 01:25 83 96 01/14/20 01:20 91 H 163/94 H 96 01/14/20 01:15 96 H 92
[2020-01-14] MEDS ORDERED: CITRIC ACID/SODIUM CITRATE 15 ML UDC PO SCH (13:30)
[2020-01-14] MEDS ORDERED: CEFAZOLIN 3000MG 65 ML IV SCH (13:30)
[2020-01-14] MEDS ORDERED: fentaNYL citrate 100 MCG/2 ML VIAL ONE (14:29)
[2020-01-14] MEDS ORDERED: LIDOCAINE/EPINEPHRINE 2% 1:200,000 20 ML SDV ONE ×2 (14:30→15:14)
[2020-01-14] MEDS ORDERED: MoRPHine SULFATE PF 1 MG/ML 10 ML AMP/VIAL ONE (14:30)
[2020-01-14] MEDS ORDERED: OXYTOCIN 10 UNITS/ML VIAL ONE ×3 (14:30→15:08)
[2020-01-14] MEDS ORDERED: PHENYLEPHRINE 100MCG/ML 5ML SYR ONE (14:45)
[2020-01-14] MEDS ORDERED: METHYLERGONOVINE MALEATE 0.2 MG/ML AMP ONE (15:08)
--- NOTE | 2020-01-14 15:54 | Post Operative Brief Note ---
Immediate Post Op Note v1 Date of Surgery January 14, 2020 Pre & Post Diagnosis Operation Date: 01/14/20 13:30 Pre-Op Diagnosis: Arrest of dilitation. Failed induction. Post-Op Diagnosis: Same as above. Delivery of live female child at 1502 I identified the patient and participated in the time-out.: Yes Procedure Operation Date: 01/14/20 13:30 Actual Procedures p Section in LD(Bilateral) - Chanda Sousa MD Surgeon Chanda Sousa MD [employer] Estimated Blood Loss 700 Findings Consistent with Post-Op Diagnosis Drains Moctezuma Catheter (placed in labor and delivery prior to OR) Anesthesia Type Labor Epidural Complications none Disposition Accompanied Patient To Recovery: Yes Disposition: L&D
[2020-01-14] MEDS ORDERED: DIPHTHERIA/TETANUS/PERTUSSIS 0.5 ML SYR/VIAL IM ONE (15:55)
[2020-01-14] MEDS ORDERED: DiphenhydrAMINE HCL 50 MG/ML VIAL IV PRN ×2 (15:55→17:44)
[2020-01-14] MEDS ORDERED: SENNA 8.6 MG TAB PO PRN (15:55)
[2020-01-14] MEDS ORDERED: SUPERCREAM 0.870% 15 GM JAR EXT PRN (15:55)
[2020-01-14] MEDS ORDERED: MAGNESIUM HYDROXIDE SUSP 30 ML UDC PO PRN (15:55)
[2020-01-14] MEDS ORDERED: BENZOCAINE 20% AER SPR 82.5 GM CAN EXT PRN (15:55)
[2020-01-14] MEDS ORDERED: MEASLES, MUMPS & RUBELLA VIRUS VIAL SQ ONE (15:55)
[2020-01-14] MEDS ORDERED: HYDROCORTISONE ACETATE 25 MG SUPP PR PRN (15:55)
[2020-01-14] MEDS ORDERED: OXYTOCIN 10 UNITS/ML VIAL IM ONE (16:10)
[2020-01-14] MEDS ORDERED: ARISTA ABSORBABLE HEMOSTAT 3GM TOP ONE (16:10)
[2020-01-14] MEDS: OXYTOCIN 20 UNITS in LACTATED RINGER'S 1,000 ML IV SCH (16:22)
--- NOTE | 2020-01-14 16:36 | Anesthesiology Progress Note ---
Date of Service January 14, 2020 Anesthesia Post Procedure Vital Signs Vital Signs: Temp Pulse Resp BP Pulse Ox 01/14/20 16:32 106 H 128/75 100 01/14/20 16:27 110 H 100 01/14/20 16:22 104 H 136/65 100 01/14/20 16:17 114 H 100 01/14/20 16:13 107 H 145/65 H 01/14/20 16:12 113 H 100 01/14/20 16:07 37 C 106 H 20 137/76 100 01/14/20 16:02 105 H 100 01/14/20 14:23 97 H 186/97 H 01/14/20 14:20 116 H 99 01/14/20 14:15 101 H 99 01/14/20 14:10 100 H 99 01/14/20 14:06 98 H 134/87 01/14/20 14:05 100 H 100 01/14/20 14:00 99 H 20 100 01/14/20 13:55 96 H 100 01/14/20 13:51 99 H 124/76 01/14/20 13:50 100 H 100 01/14/20 13:45 102 H 100 01/14/20 13:40 103 H 100 01/14/20 13:36 104 H 117/80 01/14/20 13:35 105 H 100 01/14/20 13:30 107 H 20 98 01/14/20 13:25 107 H 99 01/14/20 13:21 108 H 156/91 H 01/14/20 13:20 106 H 100 01/14/20 13:15 115 H 99 01/14/20 13:10 100 H 100 01/14/20 13:06 102 H 152/86 H 01/14/20 13:05 102 H 100 01/14/20 13:00 37.2 C 105 H 20 100 01/14/20 12:55 94 H 100 01/14/20 12:52 91 H 149/70 H 01/14/20 12:50 92 H 98 01/14/20 12:45 94 H 100 01/14/20 12:40 93 H 100 01/14/20 12:37 90 133/66 01/14/20 12:35 91 H 100 01/14/20 12:30 92 H 20 100 01/14/20 12:25 91 H 100 09/18/20 12:20 101 H 100 18/20 12:15 90 98 0918/20 12:10 95 H 98 18/20 12:05 96 H 157/76 H 99 18/20 12:01 24 20 12:00 101 H 98 18/20 11:55 98 H 97 18/20 11:51 103 H 162/92 H 20 11:50 100 H 98 1820 11:45 105 H 97 18/20 11:40 96 H 97 1820 11:36 95 H 94 18/20 11:35 99 H 137/68 97 18/20 11:30 96 H 20 97 18/20 11:25 96 H 96 20 11:21 96 H 144/71 H 1820 11:20 94 H 96 18/20 11:15 91 H 98 1820 11:10 93 H 98 20 11:06 91 H 144/78 H 20 11:05 90 97 1820 11:00 37.1 C 96 H 20 98 18/20 10:55 92 H 96 18/20 10:50 96 H 132/68 98 18/20 10:45 97 H 97 18/20 10:40 92 H 98 18/20 10:39 101 H 142/76 H 18/20 10:35 94 H 99 18/20 10:30 91 H 20 96 18/20 10:25 94 H 98 18/20 10:21 95 H 143/83 H 18/20 10:20 95 H 98 18/20 10:15 97 H 98 18/20 10:10 98 H 98 18/20 10:05 106 H 149/71 H 98 18/20 10:00 95 H 22 99 18/20 09:55 88 100 18/20 09:52 85 146/78 H 18/20 09:50 84 97 18/20 09:45 86 96 18/20 09:40 88 97 1820 09:36 86 143/91 H 18/20 09:35 87 98 09/18/20 09:30 36.6 C 89 20 98 18/20 09:25 83 100 18/20 09:21 86 150/78 H 18/20 09:20 86 98 18/20 09:15 89 99 18/20 09:10 86 99 18/20 09:05 84 135/72 97 1820 09:00 36.6 C 88 20 99 1820 08:55 85 99 18/20 08:50 84 137/63 99 18/20 08:45 84 99 18/20 08:40 85 99 18/20 08:36 86 147/68 H 1820 08:35 83 100 18/20 08:30 87 99 01/13/20 08:25 90 100 18/20 08:20 87 149/94 H 99 1820 08:15 86 98 1820 08:10 86 99 20 08:05 86 152/97 H 99 20 08:00 86 20 99 18/20 07:55 82 97 18/20 07:50 86 144/92 H 98 18/20 07:45 87 98 18/20 07:40 91 H 100 20 07:35 93 H 132/84 100 18/20 07:30 85 98 18/20 07:25 81 99 18/20 07:20 81 149/85 H 97 18/20 07:15 83 99 20 07:10 84 98 1820 07:05 77 142/85 H 98 18/20 07:00 36.8 C 85 20 99 18/20 06:55 80 99 18/20 06:50 80 127/70 98 18/20 06:45 89 99 18/20 06:40 84 97 18/20 06:35 83 154/90 H 99 18/20 06:30 99 H 20 98 18/20 06:25 88 97 18/20 06:20 97 H 120/92 97 18/20 06:15 94 H 97 18/20 06:10 96 H 96 18/20 06:06 104 H 124/91 18/20 06:05 102 H 99 18/20 06:00 100 H 20 100 20 05:55 97 H 98 18/20 05:52 92 H 139/88 18/20 05:50 94 H 98 18/20 05:45 88 98 18/20 05:40 91 H 98 01/13/20 05:35 87 147/79 H 98 1820 05:30 36.6 C 87 20 99 18/20 05:25 88 99 18/20 05:20 93 H 99 18/20 05:15 79 98 20 05:10 74 97 20 05:05 90 142/87 H 98 20 05:00 74 97 20 04:55 71 99 18/20 04:50 84 144/69 H 99 18/20 04:45 81 96 18/20 04:42 87 92 18/20 04:40 80 94 18/20 04:35 85 148/70 H 98 18/20 04:30 83 20 93 18/20 04:25 81 96 18/20 04:20 78 146/68 H 98 18/20 04:18 87 94 18/20 04:15 82 96 18/20 04:12 83 94 18/20 04:10 82 96 18/20 04:05 85 139/61 99 01/13/20 04:00 36.9 C 87 20 95 18/20 03:55 86 95 18/20 03:50 82 147/69 H 97 18/20 03:45 87 96 18/20 03:40 82 97 0918/20 03:36 92 H 137/72 18/20 03:35 96 H 99 18/20 03:30 89 96 18/20 03:25 85 96 18/20 03:20 91 H 143/70 H 98 18/20 03:15 89 98 18/20 03:10 88 98 1820 03:05 96 H 153/82 H 98 09/18/20 03:00 92 H 18 97 091820 02:55 92 H 98 20 02:50 87 165/100 H 98 20 02:45 93 H 98 01/14/20 02:40 87 98 20 02:35 91 H 157/91 H 97 01/14/20 02:30 92 H 98 20 02:25 100 H 97 01/14/20 02:20 89 167/91 H 98 01/14/20 02:15 94 H 97 01/14/20 02:10 89 98 01/14/20 02:06 87 160/86 H 01/14/20 02:05 84 98 01/14/20 02:00 85 96 01/14/20 01:55 85 97 01/14/20 01:50 89 158/89 H 97 01/14/20 01:45 86 96 01/14/20 01:40 84 96 01/14/20 01:35 93 H 164/93 H 97 01/14/20 01:30 84 98 01/14/20 01:29 87 20 94 20 01:25 83 96 20 01:20 91 H 163/94 H 96 20 01:15 96 H 92 01/14/20 01:10 92 H 96 01/14/20 01:09 99 H 92 01/14/20 01:05 88 153/84 H 96 01/14/20 01:02 94 H 93 01/14/20 01:00 94 H 20 96 01/14/20 00:55 96 H 96 01/14/20 00:50 36.6 C 90 161/86 H 97 20 00:45 97 H 98 20 00:40 81 96 1820 00:37 88 138/66 20 00:35 94 H 97 1820 00:30 88 20 97 1820 00:25 85 97 1820 00:20 88 135/63 97 1820 00:15 91 H 95 1820 00:10 91 H 94 1820 00:06 86 127/63 94 1820 00:05 89 95 20 00:00 89 20 95 01/13/20 23:55 90 96 01/13/20 23:51 90 127/65 01/13/20 23:50 89 96 01/13/20 23:45 93 H 95 01/13/20 23:40 91 H 97 01/13/20 23:36 87 127/60 01/13/20 23:35 89 98 01/13/20 23:30 86 20 98 01/13/20 23:25 112 H 98 01/13/20 23:20 101 H 102/53 L 97 01/13/20 23:15 100 H 97 01/13/20 23:10 95 H 97 01/13/20 23:06 95 H 102/53 L 01/13/20 23:05 93 H 97 01/13/20 23:00 94 H 20 97 01/13/20 22:55 98 H 98 01/13/20 22:52 94 H 132/60 01/13/20 22:50 90 98 01/13/20 22:45 98 H 98 01/13/20 22:40 91 H 98 01/13/20 22:35 93 H 148/76 H 97 01/13/20 22:30 93 H 18 96 01/13/20 22:25 94 H 95 01/13/20 22:22 99 H 137/72 01/13/20 22:20 95 H 96 01/13/20 22:15 93 H 96 01/13/20 22:10 93 H 96 01/13/20 22:06 93 H 101/51 L 01/13/20 22:05 93 H 97 01/13/20 22:00 111 H 20 99 01/13/20 21:55 99 H 96 01/13/20 21:50 96 H 128/65 96 01/13/20 21:45 99 H 97 01/13/20 21:40 92 H 97 01/13/20 21:35 96 H 134/71 97 01/13/20 21:30 122 H 99 01/13/20 21:29 101 H 93 01/13/20 21:25 103 H 95 01/13/20 21:20 97 H 96 01/13/20 21:17 96 H 94 01/13/20 21:15 98 H 95 01/13/20 21:10 101 H 96 01/13/20 21:05 95 H 97 01/13/20 21:00 36.9 C 100 H 20 98 20 20:55 99 H 98 20 20:50 99 H 97 20 20:45 96 H 98 01/13/20 20:40 121 H 100 20 20:36 105 H 129/58 L 01/13/20 20:35 99 H 98 20 20:30 94 H 20 96 20 20:25 95 H 96 01/13/20 20:21 96 H 162/73 H 20 20:20 94 H 97 01/13/20 20:15 95 H 97 01/13/20 20:10 96 H 97 01/13/20 20:06 95 H 139/65 01/13/20 20:05 94 H 98 01/13/20 20:00 90 20 98 01/13/20 19:55 90 99 01/13/20 19:51 95 H 142/67 H 01/13/20 19:50 96 H 98 01/13/20 19:45 99 H 98 01/13/20 19:40 98 H 97 01/13/20 19:36 93 H 151/73 H 01/13/20 19:35 91 H 98 01/13/20 19:30 98 H 20 99 01/13/20 19:25 94 H 98 01/13/20 19:21 94 H 124/63 01/13/20 19:20 95 H 98 01/13/20 19:15 95 H 98 01/13/20 19:10 99 H 97 01/13/20 19:05 92 H 98 01/13/20 19:04 97 H 140/67 01/13/20 19:00 91 H 98 01/13/20 18:59 93 H 143/68 H 20 18:55 92 H 98 20 18:54 94 H 154/73 H 20 18:50 97 H 97 20 18:49 97 H 142/71 H 20 18:45 97 H 143/74 H 96 20 18:40 99 H 96 20 18:39 98 H 145/69 H 20 18:35 96 H 97 01/13/20 18:34 92 H 155/77 H 01/13/20 18:30 99 H 145/87 H 97 01/13/20 18:25 91 H 97 01/13/20 18:24 94 H 127/57 L 01/13/20 18:20 92 H 98 01/13/20 18:18 90 123/59 L 01/13/20 18:16 90 126/61 01/13/20 18:15 92 H 98 01/13/20 18:14 93 H 127/60 01/13/20 18:12 93 H 18 126/60 01/13/20 18:10 93 H 18 122/58 L 98 01/13/20 18:08 102 H 131/61 01/13/20 18:06 93 H 143/69 H 01/13/20 18:05 91 H 98 01/13/20 18:04 96 H 18 143/66 H 01/13/20 18:02 95 H 16 145/67 H 01/13/20 18:00 94 H 16 143/68 H 98 01/13/20 17:58 96 H 16 137/67 01/13/20 17:56 93 H 16 145/76 H 01/13/20 17:55 92 H 98 01/13/20 17:54 93 H 16 143/65 H 01/13/20 17:52 93 H 16 144/65 H 01/13/20 17:50 93 H 16 144/72 H 99 01/13/20 17:48 101 H 16 148/63 H 01/13/20 17:46 98 H 16 158/74 H 01/13/20 17:45 98 H 99 01/13/20 17:44 100 H 180/91 H 01/13/20 17:40 101 H 99 01/13/20 17:35 99 H 99 01/13/20 17:31 92 H 178/101 H 01/13/20 17:30 88 100 01/13/20 17:25 89 99 01/13/20 17:20 86 99 01/13/20 17:15 90 99 01/13/20 17:10 90 98 01/13/20 17:05 83 99 Pain Intensity Bilateral Abdomen: Pain Intensity: 0 Transfer of Care Handoff Completed per policy Notes Mental Status: alert / awake / arousable Patient Amnestic to Procedure: Yes Nausea / Vomiting: adequately controlled Pain: adequately controlled Airway Patency, RR, SpO2: stable & adequate BP & HR: stable & adequate Hydration State: stable & adequate Neuraxial Anesthesia: was administered and sensory block is resolving Anesthetic Complications: no major complications apparent and Pt Satisfied with anesthetic care
[2020-01-14] MEDS: SIMETHICONE 80 MG CHEW PO SCH ×2 (17:35→22:40)
[2020-01-14] MEDS: KETOROLAC 30 MG/ML VIAL IV PRN (17:42)
[2020-01-14] MEDS ORDERED: NALOXONE HCL 0.4 MG/1 ML VIAL/CARP IV PRN (17:44)
[2020-01-14] MEDS ORDERED: KETOROLAC 30 MG/ML VIAL IV PRN (17:44)
[2020-01-14] MEDS ORDERED: NALOXONE HCL 0.08 MG in SYRINGE 1.8 ML IV PRN (17:44)
[2020-01-14] MEDS ORDERED: LACTATED RINGER'S 500 ML IV PRN (17:44)
[2020-01-14] MEDS ORDERED: NALOXONE HCL 1 MG in SODIUM CHLORIDE 0.9% 1000ML 1,000 ML IV PRN (17:44)
[2020-01-14] MEDS ORDERED: HYDROmorphone INJ 0.5 MG/0.5 ML SYR IV PRN (17:44)
[2020-01-14] MEDS ORDERED: MoRPHine SULFATE PF 1 MG/ML 10 ML AMP/VIAL EPI ONE (17:44)
[2020-01-14] MEDS ORDERED: ePHEDrine sulfate 50 MG/ML AMP IV PRN (17:44)
[2020-01-14] MEDS ORDERED: SODIUM CHLORIDE 0.9% 1000ML 1,000 ML IV SCH (17:45)
[2020-01-14] MEDS ORDERED: NO NARCOTICS OR SEDATIVES SCH (17:45)
[2020-01-14] MEDS: DOCUSATE SODIUM 100 MG CAP PO SCH (21:31)
[2020-01-14] MEDS ORDERED: CEFAZOLIN 2000MG 2,000 MG/15 ML SYR IV SCH (22:00)
[2020-01-14] MEDS: CEFAZOLIN 3,000 MG in DEXTROSE 5% 50 ML IV SCH (23:04)
--- NOTE | 2020-01-14 23:19 | Operative Report (OR) ---
DATE OF OPERATION: 01/14/2020 PREOPERATIVE DIAGNOSES: The patient is a 24-year-old G1, P0 at 39 weeks and 2 days of gestation, admitted for induction of labor for low BPP 2/10 and morbid obesity, on 01/11/2020. Protracted labor Arrest of dilatation in active phase of labor. Failed induction. POSTOPERATIVE DIAGNOSES: The patient is a 24-year-old G1, P0 at 39 weeks and 2 days of gestation, admitted for induction of labor for low BPP 2/10 and morbid obesity, on 01/11/2020. Protracted labor Arrest of dilatation in active phase of labor. Failed induction. PROCEDURE: Primary low transverse with Pfannenstiel skin incision. SURGEON: Chanda Sousa MD ASSISTANTS: Dr. Stephens and Dr. Cole. ESTIMATED BLOOD LOSS: 700 mL. DRAINS: Moctezuma catheter drained 200 mL of dark urine. ANESTHESIA: Labor epidural. ANESTHESIOLOGIST: Dr. Irving. COMPLICATIONS: None. FINDINGS: The baby was a viable female delivered in cephalic presentation, Apgars 8/9 and meconium stained fluid. Weight 4010 gr. Maternal findings, normal uterus, fallopian tubes, and ovaries, and morbid obesity. DESCRIPTION OF PROCEDURE: The patient was taken to the operating room where epidural anesthesia was found to be adequate. She was placed in dorsal supine position with a leftward tilt. She was prepared and draped in usual sterile fashion. A Pfannenstiel skin incision was made and carried through to the underlying layer of fascia with the Bovie. Fascia was incised in the midline and incision was extended laterally with the help of Larson scissors. Upper aspect of the fascial incision was grasped with 2 Toshia clamps, elevated, underlying rectus muscles were dissected off sharply with Larson scissors. Lower aspect of the fascial incision was then grasped with 2 Toshia clamps, elevated, underlying rectus muscles were dissected off sharply with Larson scissors. Rectus muscles were in the midline. Peritoneum was entered bluntly with fingers. Peritoneal incision was extended superiorly and inferiorly with good visualization of the bladder and Mode abdominal retractor was placed to retract the abdominal wall. Vesicouterine peritoneum was identified, grasped with pickups and entered sharply with Metzenbaum scissors. Bladder flap was created digitally and bladder blade was reinserted. Lower uterine segment was incised in transverse fashion, incision was extended laterally with the help of fingers. Membranes were ruptured. Meconium stained clear fluid was obtained. Baby's head was delivered without difficulty. Shoulders were delivered with minimal traction. Mouth and nose were suctioned. Cord was clamped x2 and cut. Baby was handed to waiting pediatric team. Placenta was delivered manually as intact and complete. Uterus was exteriorized, cleared of all clots and debris. Uterine incision was repaired with 0 Vicryl in a running locked fashion and a second imbricating layer was placed with another 0 Vicryl in a running locked fashion. Excellent hemostasis was achieved. Uterus was returned to the abdomen. The pelvis was irrigated with warm normal saline and suctioned. Incision was checked to be hemostatic again. Parietal peritoneum was reapproximated with 2-0 Vicryl in a running fashion. Rectus muscles were brought together with 2-0 Vicryl in a running fashion. Subcuticular fat tissue was reapproximated with 2-0 plain catgut in a running fashion. Skin was closed with cristóbal and covered with ROJELIO dressing. The patient tolerated the procedure well. Sponge, lap, needle and instrument count was correct x3. She was given 3 grams of cefazolin before surgery and 500 mg of azithromycin during surgery. She was taken to recovery room in stable condition. No complications happened. I was and Dr. Stephens and Dr. Cole were present during whole procedure. My assistants were needed for retraction, visualization and hemostasis during surgery. I attest to the content of the Intraoperative Record and any orders documented therein. Any exceptions are noted below. TYRONE
[2020-01-15] MEDS: OXYTOCIN 20 UNITS in LACTATED RINGER'S 1,000 ML IV SCH (00:24)
[2020-01-15] MEDS: CEFAZOLIN 3,000 MG in DEXTROSE 5% 50 ML IV SCH ×3 (06:00→22:09)
[2020-01-15] MEDS: LEVOTHYROXINE SODIUM 25 MCG TABLET PO SCH (06:00)
[2020-01-15 06:40] LABS: Basophils # (auto) 0.02 K/uL (0-0.2); Basophils % (auto) 0.1 %; Eosinophils # (auto) 0.12 K/uL (0-0.5); Eosinophils % (auto) 0.9 %; Hematocrit (blood only) 26.8 % (37-47); Hemoglobin 8.8 g/dL (12.0-16.0); Immature Granulocytes # (auto) 0.07 K/uL (0.00-0.02); Immature Granulocytes % (auto) 0.5 %; Lymphocytes # (auto) 1.84 K/uL (1.2-3.4); Lymphocytes % (auto) 13.8 %; Mean Corpuscular Hemoglobin 27.2 pg (25-34); Mean Corpuscular Hgb Conc 32.8 g/dL (32-36); Mean Corpuscular Volume 82.7 fL (80-100); Mean Platelet Volume 10.8 fL (7.4-10.4); Monocytes # (auto) 1.55 K/uL (0.11-0.59); Monocytes % (auto) 11.6 %; Neutrophils # (auto) 9.77 K/uL (1.4-6.5); Neutrophils % (auto) 73.1 %; Platelet Count 216 K/uL (130-400); RDW Coefficient of Variation 14.6 % (11.5-14.5); RDW Standard Deviation 44.3 fL (36.4-46.3); Red Blood Count 3.24 M/uL (4.2-5.4); White Blood Count 13.37 K/uL (4.8-10.8)
[2020-01-15] MEDS: PRENATAL VITAMIN 1 TAB PO SCH (08:14)
[2020-01-15] MEDS: DOCUSATE SODIUM 100 MG CAP PO SCH ×2 (08:14→20:29)
[2020-01-15] MEDS: FERROUS SULFATE 325 MG TAB PO SCH (08:14)
[2020-01-15] MEDS: SIMETHICONE 80 MG CHEW PO SCH ×3 (08:14→20:28)
[2020-01-15] MEDS: LACTATED RINGER'S 1,000 ML IV SCH ×3 (08:24→14:57)
--- NOTE | 2020-01-15 11:40 | Obstetrical Progress Note ---
Date of Service January 15, 2020 Assessment & Plan (1) delivery delivered: POD #1 pt doing well Morbid obesity starting Lovenox continue care Subjective Ambulation: ambulating normally Voiding: no voiding problems Passing Gas:: Yes Diet Tolerance:: clear liquids Lochia:: Small Feeding Type:: breast feeding Review of Systems All systems reviewed & are unremarkable except as noted in HPI & below Physical Exam Constitutional WD/WN, vitals as above well developed and well nourished Eyes PERRL, conjunctivae normal, anicteric sclerae ENMT external ear and nose normal, oropharynx normal Neck trachea midline, no thyromegaly Respiratory normal respiratory effort, lungs clear to auscultation Cardiovascular RRR, no murmur, no edema Chest (Breasts) normal inspection/palpation of breasts Gastrointestinal (Abdomen) normal bowel sounds, soft, nontender, no hepatosplenomegaly Musculoskeletal no cyanosis or clubbing, extremities motor strength 5/5 Skin no rashes, warm and dry + incision (Clean,dry and intact) Neurologic patellar DTR's 2+ bilat, sensation intact Psychiatric A+Ox3, euthymic affect Genitourinary normal external appearance Lymphatic no cervical or axillary lymphadenopathy Results & Data ([facility]) Vital Signs (Past 12 Hours) Vital Signs Temp Pulse Resp BP Pulse Ox 01/15/20 11:26 36.5 C 99 H 20 111/85 96 01/15/20 09:00 36.7 C 92 H 20 115/78 01/15/20 06:15 20 93 01/15/20 05:15 18 91 01/15/20 04:15 20 90 01/15/20 03:20 36.9 C 106 H 22 116/75 94 01/15/20 02:15 20 91 01/15/20 01:15 20 92 01/15/20 00:15 20 92
[2020-01-15] MEDS ORDERED: ONDANSETRON INJ 2 MG/ML 2 ML VIAL IV PRN (11:44)
[2020-01-15] MEDS ORDERED: MEPERIDINE HCL 50 MG/ML CARP IV PRN (11:44)
[2020-01-15] MEDS ORDERED: PROMETHAZINE HCL 25 MG in SODIUM CHLORIDE 0.9% 50 ML IV PRN (11:44)
[2020-01-15] MEDS ORDERED: DC INTRASPINAL MORPHINE SCH (11:44)
[2020-01-15] MEDS: KETOROLAC 30 MG/ML VIAL IV PRN (12:45)
[2020-01-15] MEDS: ENOXAPARIN INJ 40 MG/0.4 ML SYR SQ SCH (12:49)
[2020-01-15] MEDS: IBUPROFEN 600 MG TAB PO PRN ×2 (16:59→21:00)
[2020-01-15] MEDS ORDERED: bisacodyL 5 MG TABEC PO SCH (20:00)
[2020-01-15] MEDS: OXYCODONE/ACETAMINOPHEN 5mg/325mg TAB PO PRN (21:01)
[2020-01-16] MEDS ORDERED: Nursing to Pharmacy Communication SCH (01:15)
[2020-01-16] MEDS: OXYCODONE/ACETAMINOPHEN 5mg/325mg TAB PO PRN ×3 (01:35→12:06)
[2020-01-16] MEDS: IBUPROFEN 600 MG TAB PO PRN ×3 (01:35→12:06)
[2020-01-16 06:10] LABS: Hematocrit (blood only) 25.6 % (37-47); Hemoglobin 8.3 g/dL (12.0-16.0)
[2020-01-16] MEDS: LACTATED RINGER'S 1,000 ML IV SCH (06:26)
[2020-01-16] MEDS: LEVOTHYROXINE SODIUM 25 MCG TABLET PO SCH (06:32)
[2020-01-16] MEDS: ENOXAPARIN INJ 40 MG/0.4 ML SYR SQ SCH (08:11)
[2020-01-16] MEDS: SIMETHICONE 80 MG CHEW PO SCH ×2 (08:27→12:06)
[2020-01-16] MEDS: FERROUS SULFATE 325 MG TAB PO SCH (08:27)
[2020-01-16] MEDS: PRENATAL VITAMIN 1 TAB PO SCH (08:28)
[2020-01-16] MEDS: DOCUSATE SODIUM 100 MG CAP PO SCH (08:28)
--- NOTE | 2020-01-16 11:19 | Obstetrical Progress Note ---
Date of Service January 16, 2020 Assessment & Plan (1) delivery delivered: Day #2 Pt doing well No complaints [place] [facility] [place] be [place] Subjective Ambulation: ambulating normally Voiding: no voiding problems Passing Gas:: Yes Diet Tolerance:: clear liquids Lochia:: Small Feeding Type:: breast feeding Review of Systems All systems reviewed & are unremarkable except as noted in HPI & below Physical Exam Constitutional WD/WN, vitals as above well developed and well nourished Eyes PERRL, conjunctivae normal, anicteric sclerae ENMT external ear and nose normal, oropharynx normal Neck trachea midline, no thyromegaly Respiratory normal respiratory effort, lungs clear to auscultation Cardiovascular RRR, no murmur, no edema Chest (Breasts) normal inspection/palpation of breasts Gastrointestinal (Abdomen) normal bowel sounds, soft, nontender, no hepatosplenomegaly Musculoskeletal no cyanosis or clubbing, extremities motor strength 5/5 Skin no rashes, warm and dry + incision (Clean,dry and intact) Neurologic patellar DTR's 2+ bilat, sensation intact Psychiatric A+Ox3, euthymic affect Genitourinary normal external appearance Lymphatic no cervical or axillary lymphadenopathy Results & Data ([facility]) Vital Signs (Past 12 Hours) Vital Signs Temp Pulse Resp BP Pulse Ox 01/16/20 09:00 36.5 C 98 H 18 142/81 H 100 01/15/20 23:50 36.8 C 106 H 18 142/84 H
[2020-01-16] MEDS ORDERED: bisacodyL 10 MG SUPP PR PRN (15:55)
--- NOTE | 2020-01-18 11:23 | Discharge Summary (DS) ---
DETAILS OF ADMISSION: The patient is a 24-year-old G1, P0 at 39 weeks of gestation, who was admitted by Dr. Cole on 01/11/2020 when she was sent from office with a BPP of 2 out of 8. Upon arrival to labor and delivery, her heart rate was reassuring, NST was reactive. Her cervix was closed and she was recommended induction of labor at term. She received Cervidil overnight on 01/11/2020 and on the morning of 01/12/2020 patient was seen by Dr. Garcia. Cervix was unchanged and then she was started on oral Cytotec for cervical ripening. heart rate was category 1 and reassuring. On the evening of 01/12/2020 patient's cervix was still closed, effaced about 50%, head was high. heart rate was reassuring and another Cervidil was placed intravaginally. On the morning of 01/13/2020 her cervix was found to be 3 cm dilated, 60% effaced, head was high. heart rate was reassuring at Category 1. Estimated weight was 7-[address] Garcia. On the afternoon of 01/13/2020, cervix was 4 cm dilated, 80% effaced, head was still high and heart rate was category 1. She was continued for induction of labor with Pitocin. On evening of 01/13/2020 cervix was unchanged, heart rate was category 1. She received epidural and it was working well. On the morning of 01/14/2020, her cervix was checked again by Dr. Garcia. It was 4 cm, 80%, -2 and AROM ( artificial rupture of membranes) was done, meconium was obtained and heart rate was reassuring. On the morning of 01/14/2020, I took her care over. Nursing team asked for internal monitors. scalp electrode was placed and IUPC was placed for internal monitoring. Then Pitocin was increased until we obtained adequate uterine contractions. At noon, I checked her cervix again, her cervix was unchanged despite adequate contractions, head was still high and coned. Recommended delivery via due to protracted labor, no change in cervix despite adequate contractions and patient agreed. She signed an informed consent for primary . On the afternoon of 01/14/2020, patient delivered a viable female infant. Apgars were 8/9, weight was 4010 grams. Her surgery was uncomplicated. See dictated op note for details. On postop day #1, the patient was doing well. She was started on Lovenox for DVT prophylaxis. She was passing gas, tolerating clear diet. Urine output was adequate and vital signs stable, afebrile. On postop day #2, 01/16/2020, patient was doing well. Vital signs stable, afebrile. Physical exam was unremarkable. Incision was clean, dry and intact. Her baby was transferred to [facility] for further care. The patient desired to be discharged on postop day #2. Discharge instructions were given to call, prescriptions were written for pain. She is to be seen in office in a week. All questions were answered. TYRONE
== END 2020-01-16 12:45 | disposition home or self-care (01) | DRG 788 ==
LOC: OPB 15:39 → 4S1 15:40 → 4S2 01-14 18:30